=== PATIENT | female | born 1940 | race Caucasian/White ===

== ENCOUNTER 2016-05-22 21:39 | Emergency (ER) | payer MEDICARE, BC ==
[~2016-05-22] VITALS: Ht 157.5 cm; Wt 66.7 kg
[~2016-05-22 21:39] MED LIST: ASPI81TA82 PO; CALC600T34 PO; CHOL1CAP6 PO; LIPI10TA PO; PANT20 PO
[2016-05-22 21:55] VITALS: BP 131/76; PULSE 125; RESP 18; TEMP 99.8; O2SAT 96
[2016-05-22] MEDS ORDERED: SODIUM CHLOR 0.9% 1000 ML INJ 1,000 ML IV SCH ×2 (22:33→23:30)
[2016-05-22 22:34] VITALS: O2SAT 98
--- NOTE | 2016-05-22 22:44 | PD ---
HPI Chief Complaint: GI Complaint Time Seen by Provider: 22:14 Travel History International Travel<30 days: No Contact w/Intl Traveler<30days: No Traveled to known affect area: No History of Present Illness HPI The patient is a 75-year-old female that states she has been having nausea and vomiting since 2 PM today. She feels that she has had a fever, she has chills and feels cold. She does have generalized myalgias. She denies any abdominal pain. She denies any dysuria, frequency or urgency. She does feel dehydrated. PFSH Past Medical History Heart Rhythm Problems: No Cancer: No Cardiac Catheterization: No Cardiovascular Problems: Yes (HX OF CARDIAC CATH, ? CARDIOMYOPATHY, LBBB ON EKG ) High Cholesterol: No Congestive Heart Failure: No Diabetes: No Diminished Hearing: No Endocrine: No Gastrointestinal Disorders: Yes (ACID REFLUX, CELIAC DISEASE--GLUTEN FREE) Glaucoma: Yes (BILATERAL 1981) Genitourinary: No Hepatitis: No Hiatal Hernia: No Hypertension: No Immune Disorder: Yes (CELIAC DISEASE) Musculoskeletal: Yes (ARTHRITIS, ELISEO HAND TRIGGER FINGER, CARPAL TUNNEL ELISEO HANDS, ELISEO SHOULDERS) Neurologic: No Psychiatric: No Reproductive: No Respiratory: No Myocardial Infarction: Yes Thyroid Disease: No Tetanus Vaccination: Unknown Influenza Vaccination: No ?: Not Menopausal: Yes : 2 Past Surgical History Body Medical Devices: SCREWS IN R KNEE REMOVED Cholecystectomy: Yes (2002) Coronary Artery Bypass Graft: No Eye Surgery: Yes (ACUTE GLAUCOMA SURGERY ELISEO EYES 1981, ELISEO CATARACT SURGERY) Joint Replacement: No Neurologic Surgery: Yes (BILATERAL CARPAL TUNNEL, NEUROMA REMOVED FROM PLANTAR SURFACE ELISEO FEET) Thoracic Surgery: Yes (CHEST TUBE FOR R LUNG PNEUMOTHROAX ACQUIRED DURING CPR WHEN PT CODED 2008) Other Surgery: Yes (MECHANICAL VENTILATION, TRAUMATIC R. PNEUMOTHORAX) Family History Family Myocardial Infarction: Yes (mom) Social History Alcohol Use: No Tobacco Use: No Substance Use: No Allergies-Medications (Allergen,Severity, Reaction): Coded Allergies: No Known Allergies (Unverified , 11/05/15) Reported Meds & Prescriptions Reported Meds & Active Scripts Active Ibuprofen 600 Mg Tab 600 Mg PO TID Reported Protonix (Pantoprazole Sodium) 20 Mg Tab 20 Mg PO DAILY Vitamin D-3 (Cholecalciferol) 1,000 Unit Tab 1,000 Units PO DAILY Lipitor (Atorvastatin Calcium) 10 Mg Tab 10 Mg PO HS Review of Systems Except as stated in HPI: all other systems reviewed are Neg Physical Exam Narrative GENERAL: The patient is alert, oriented 3, moderately dehydrated appearing in moderate apparent distress with her nausea. Her vital signs show heart rate of 125 with temperature 99.8. SKIN: Warm and dry. No skin rash is seen. HEAD: Atraumatic. Normocephalic. EYES: Pupils equal and round. No scleral icterus. No injection or drainage. ENT: No nasal bleeding or discharge. Mucous membranes pink and moist. The throat is clear and the tympanic membranes are clear. NECK: Trachea midline. No JVD. CARDIOVASCULAR: Regular rate and rhythm. No murmur appreciated. RESPIRATORY: No accessory muscle use. Clear to auscultation. Breath sounds equal bilaterally. GASTROINTESTINAL: Abdomen soft, non-tender, nondistended. Hepatic and splenic margins not palpable. No Guarding or rebound is present. MUSCULOSKELETAL: No obvious deformities. No clubbing. No cyanosis. No edema. NEUROLOGICAL: Awake and alert. No obvious cranial nerve deficits. Motor grossly within normal limits. Normal speech. PSYCHIATRIC: Appropriate mood and affect; insight and judgment normal. Data Data Last Documented VS Vital Signs Date Time Temp Pulse Resp B/P Pulse Ox O2 Delivery O2 Flow Rate FiO2 05/22/16 23:49 86 17 138/58 99 Room Air 05/22/16 21:55 99.8 Orders Complete Blood Count With Diff (05/22/16 22:33) Comprehensive Metabolic Panel (05/22/16 22:33) Lipase (05/22/16 22:33) Urinalysis - C+S If Indicated (05/22/16 22:33) Iv Access Insert/Monitor (05/22/16 22:33) Ecg Monitoring (05/22/16 22:33) Oximetry (05/22/16 22:33) Ondansetron Inj (Zofran Inj) (05/22/16 22:45) Sodium Chlor 0.9% 1000 Ml Inj (Ns 1000 M (05/22/16 22:33) Sodium Chloride 0.9% Flush (Ns Flush) (05/22/16 22:45) Ketorolac Inj (Toradol Inj) (05/22/16 22:45) Influenzae A/B Antigen (05/22/16 22:53) Sodium Chloride 0.9% Flush (Ns Flush) (05/22/16 23:00) Sodium Chlor 0.9% 1000 Ml Inj (Ns 1000 M (05/22/16 23:30) Labs Laboratory Tests Test 05/22/16 22:40 White Blood Count 6.8 TH/MM3 Red Blood Count 5.10 MIL/MM3 Hemoglobin 15.3 GM/DL Hematocrit 46.5 % Mean Corpuscular Volume 91.3 FL Mean Corpuscular Hemoglobin 30.1 PG Mean Corpuscular Hemoglobin 33.0 % Concent Red Cell Distribution Width 13.9 % Platelet Count 206 TH/MM3 Mean Platelet Volume 8.8 FL Neutrophils (%) (Auto) 83.6 % Lymphocytes (%) (Auto) 10.3 % Monocytes (%) (Auto) 5.5 % Eosinophils (%) (Auto) 0.3 % Basophils (%) (Auto) 0.3 % Neutrophils # (Auto) 5.7 TH/MM3 Lymphocytes # (Auto) 0.7 TH/MM3 Monocytes # (Auto) 0.4 TH/MM3 Eosinophils # (Auto) 0.0 TH/MM3 Basophils # (Auto) 0.0 TH/MM3 CBC Comment DIFF FINAL Differential Comment Sodium Level 143 MEQ/L Potassium Level 3.8 MEQ/L Chloride Level 103 MEQ/L Carbon Dioxide Level 28.6 MEQ/L Anion Gap 11 MEQ/L Blood Urea Nitrogen 15 MG/DL Creatinine 0.90 MG/DL Estimat Glomerular Filtration 61 ML/MIN Rate Random Glucose 131 MG/DL Calcium Level 8.9 MG/DL Total Bilirubin 1.1 MG/DL Aspartate Amino Transf 26 U/L (AST/SGOT) Alanine Aminotransferase 30 U/L (ALT/SGPT) Alkaline Phosphatase 53 U/L Total Protein 7.2 GM/DL Albumin 3.9 GM/DL Lipase 155 U/L MDM Medical Decision Making Medical Screen Exam Complete: Yes Emergency Medical Condition: Yes Medical Record Reviewed: Yes Interpretation(s) The CBC is normal. The hemoglobin is 15.3 and hematocrit 46.5 and this likely represents some hemoconcentration from dehydration. The complete metabolic profile shows a GFR of 61, glucose 131 and total bilirubin 1.1 but is otherwise normal. The lipase is normal. Differential Diagnosis Viral syndrome, gastroenteritis, gastritis, dehydration, electrolyte disorder, anemia, hypo-/hyperglycemia, colitis Narrative Course The patient has drank 2 glasses of water/Gatorade and is at 2 L of IV fluid. Despite this, she is not able to make a urine yet. She apparently was dehydrated. The hemoglobin and hematocrit likely reflect some hemoconcentration from dehydration. Impression: Viral syndrome, moderate dehydration Sepsis Criteria SIRS Criteria (2 or more): Heart rate over 90 Diagnosis Primary Impression: Viral syndrome Additional Impression: Moderate dehydration Additional Instructions: Take the Motrin one tablet 3 times daily for the aches and pains. Follow-up with your primary care physician this week. Med/Other Pt SpecificInfo: Prescription(s) given Scripts Ibuprofen 600 Mg Gay263 Mg PO TID #45 TAB Ref 0 Prov:Tyrell Bales MD 05/23/16 Disposition: 01 DISCHARGE HOME Condition: Stable Tyrell Bales MD May 22, 2016 22:44
[2016-05-22] MEDS ORDERED: ONDANSETRON HCL 4 MG/2 ML VIAL IVP ONE (22:45)
[2016-05-22] MEDS ORDERED: SODIUM CHLORIDE 0.9% FLUSH 5 ML FLUSH IVF PRN ×2 (22:45→23:00)
[2016-05-22] MEDS ORDERED: KETOROLAC TROMETHAMINE 60 MG/2 ML (IM) VIAL IVP ONE (22:45)
[2016-05-22 22:49] VITALS: BP 112/56; PULSE 101; RESP 16; O2SAT 97
[2016-05-22 23:05] LABS: AUTOMATED NEUTROPHIL # 5.7 TH/MM3 (1.8-7.7); BASOPHIL % 0.3 % (0.0-2.0); EOSINOPHIL % 0.3 % (0.0-4.0); HEMATOCRIT 46.5 % (35.0-46.0); HEMO FLAGS DIFF FINAL; LYMPH % 10.3 % (9.0-44.0); LYMPHOCYTE # 0.7 TH/MM3 (1.0-4.8); MEAN CELL VOLUME 91.3 FL (80.0-100.0); MEAN CORPUSCULAR HEMOGLOBIN 30.1 PG (27.0-34.0); MONO % 5.5 % (0.0-8.0); NEUT % 83.6 % (16.0-70.0); PLATELET COUNT 206 TH/MM3 (150-450); RED CELL DISTRIBUTION WIDTH 13.9 % (11.6-17.2); WHITE BLOOD COUNT 6.8 TH/MM3 (4.0-11.0)
[2016-05-22] MEDS ORDERED: VITA10003 PO (23:06)
[2016-05-22] MEDS ORDERED: PANT20 PO (23:06)
[2016-05-22] MEDS ORDERED: LIPI10TA PO (23:06)
[2016-05-22 23:08] LABS: CHLORIDE 103 MEQ/L (98-107); POTASSIUM 3.8 MEQ/L (3.5-5.1); SODIUM (NA) 143 MEQ/L (136-145)
[2016-05-22 23:12] LABS: ANION GAP 11 MEQ/L (5-15); BICARBONATE 28.6 MEQ/L (21.0-32.0); BLOOD UREA NITROGEN 15 MG/DL (7-18)
[2016-05-22 23:15] LABS: ALT (GPT) 30 U/L (10-53); AST (GOT) 26 U/L (15-37); GLOMERULAR FILTRATION RATE 61 ML/MIN (>89)
[2016-05-22 23:17] LABS: TOTAL BILIRUBIN ADULT 1.1 MG/DL (0.2-1.0)
[2016-05-22 23:18] LABS: ALKALINE PHOSPHATASE 53 U/L (45-117)
[2016-05-22 23:30] VITALS: TEMP 99.5
[2016-05-22 23:49] VITALS: BP 138/58; PULSE 86; RESP 17; O2SAT 99
[2016-05-23] MEDS ORDERED: IBUP-232 PO (00:02)
[2016-05-23] MEDS ORDERED: ZOFR8TAB PO (00:15)
[2016-05-23 00:22] LABS: BLOOD, URINE NEG (NEG); GLUCOSE,URINE NEG (NEG); KETONE, URINE 15 mg/dL (NEG); NITRITE,URINE NEG (NEG)
[2016-05-23] MEDS ORDERED: ONDANSETRON HCL 4 MG/2 ML VIAL IV ONE (00:30)
[2016-05-23 00:32] LABS: METHOD OF COLLECTION CLEAN CATCH; URINE COLOR YELLOW (YELLW/STRAW)
[2016-05-23 00:34] LABS: MUCUS URINE OCC /lpf (OCC); SQUAMOUS EPITHELIAL CELL URINE 0-5 /hpf (0-5)
[2016-05-23 00:35] LABS: COMMENT (UR) CULT NOT INDICATED; CULTURE IF INDICATED CULT NOT INDICATED
[2016-05-23 00:50] VITALS: BP 116/69
== END 2016-05-23 00:51 | disposition home or self-care (01) ==
LOC: PHED 21:39
DX: B34.9 Viral infection, unspecified (principal); E86.0 Dehydration
CPT/HCPCS: 80053; 81001; 83690; 85025; 87804; 96361; 96374; 96375; 96376; 99284; J1885; J2405; J7030

== ENCOUNTER → 2016-09-06 | Outpatient (CLI) | payer MEDICARE, BC ==
[~2016-09-06] MED LIST changes: -ASPI81TA82 PO; -CALC600T34 PO; -CHOL1CAP6 PO; +IBUP-232 PO; +VITA10003 PO; +ZOFR8TAB PO
== END ==
LOC: PLAB 12:45
PROVIDERS: ATTEND Family Medicine
DX: R25.2 Cramp and spasm (principal)
CPT/HCPCS: 36415; 82310

== ENCOUNTER → 2016-11-03 | Outpatient (CLI) | payer MEDICARE, BC ==
[2016-11-03 13:25] LABS: AUTOMATED NEUTROPHIL # 2.2 TH/MM3 (1.8-7.7); BASOPHIL % 0.5 % (0.0-2.0); EOSINOPHIL # 0.1 TH/MM3 (0-0.4); EOSINOPHIL % 2.4 % (0.0-4.0); HEMATOCRIT 41.3 % (35.0-46.0); HEMO FLAGS DIFF FINAL; LYMPH % 30.8 % (9.0-44.0); LYMPHOCYTE # 1.2 TH/MM3 (1.0-4.8); MEAN CELL VOLUME 92.1 FL (80.0-100.0); MEAN CORPUSCULAR HEMOGLOBIN 30.7 PG (27.0-34.0); MEAN CORPUSCULAR HGB CONC 33.3 % (32.0-36.0); MONO % 11.1 % (0.0-8.0); NEUT % 55.2 % (16.0-70.0); PLATELET COUNT 218 TH/MM3 (150-450); RED BLOOD COUNT 4.49 MIL/MM3 (4.00-5.30)
[2016-11-03 13:27] LABS: ANION GAP 7 MEQ/L (5-15); AST (GOT) 26 U/L (15-37); BICARBONATE 31.2 MEQ/L (21.0-32.0); BLOOD UREA NITROGEN 16 MG/DL (7-18); CHLORIDE 105 MEQ/L (98-107); GLOMERULAR FILTRATION RATE 80 ML/MIN (>89); GLUCOSE,FASTING 82 MG/DL (74-99); POTASSIUM 4.2 MEQ/L (3.5-5.1); SODIUM (NA) 143 MEQ/L (136-145)
[2016-11-03 13:39] LABS: ALKALINE PHOSPHATASE 60 U/L (45-117); ALT (GPT) 29 U/L (10-53); HDL CHOLESTEROL 61.3 MG/DL (40.0-60.0); LDL CHOLESTEROL 101 MG/DL (0-99); TOTAL BILIRUBIN ADULT 0.8 MG/DL (0.2-1.0)
== END ==
LOC: PLAB 11:03
PROVIDERS: ATTEND Family Medicine
DX: R25.2 Cramp and spasm (principal); E78.5 Hyperlipidemia, unspecified; M81.0 Age-related osteoporosis without current pathological fracture; E55.9 Vitamin D deficiency, unspecified; F41.9 Anxiety disorder, unspecified; R53.83 Other fatigue
CPT/HCPCS: 36415; 80053; 80061; 82306; 84443; 85025

== ENCOUNTER → 2017-03-29 | Outpatient (CLI) | payer MEDICARE, BC ==
[~2017-03-29] MED LIST changes: -IBUP-232 PO; +NAPR500 PO; -VITA10003 PO; -ZOFR8TAB PO
[2017-03-29 13:52] LABS: BICARBONATE 29.7 MEQ/L (21.0-32.0)
== END ==
LOC: PLAB 11:02
PROVIDERS: ATTEND Family Medicine
DX: R25.2 Cramp and spasm (principal)
CPT/HCPCS: 36415; 80048

== ENCOUNTER → 2017-05-16 | Outpatient (CLI) | payer MEDICARE, BC ==
[~2017-05-16] MED LIST changes: +ALPR0.5T3 PO; +BETH25TA2 PO; +CALC1TAB87 PO; +DENO60P SQ; +ECASA81 PO; +MAGN250T11 PO; +SUCR1TAB PO; +TIZA4 PO
[2017-05-16 09:45] LABS: AUTOMATED NEUTROPHIL # 1.4 TH/MM3 (1.8-7.7); BASOPHIL % 0.6 % (0.0-2.0); EOSINOPHIL # 0.1 TH/MM3 (0-0.4); EOSINOPHIL % 4.1 % (0.0-4.0); HEMOGLOBIN 13.6 GM/DL (11.6-15.3); LYMPH % 40.5 % (9.0-44.0); LYMPHOCYTE # 1.3 TH/MM3 (1.0-4.8); MEAN CELL VOLUME 94.2 FL (80.0-100.0); MEAN CORPUSCULAR HEMOGLOBIN 31.9 PG (27.0-34.0); MEAN CORPUSCULAR HGB CONC 33.9 % (32.0-36.0); MEAN PLATELET VOLUME 8.1 FL (7.0-11.0); MONO % 11.2 % (0.0-8.0); MONOCYTE # 0.4 TH/MM3 (0-0.9); NEUT % 43.6 % (16.0-70.0); PLATELET COUNT 230 TH/MM3 (150-450); RED BLOOD COUNT 4.25 MIL/MM3 (4.00-5.30); RED CELL DISTRIBUTION WIDTH 14.4 % (11.6-17.2); WHITE BLOOD COUNT 3.1 TH/MM3 (4.0-11.0)
[2017-05-16 10:02] LABS: ALBUMIN 3.7 GM/DL (3.4-5.0); ALT (GPT) 22 U/L (10-53); AST (GOT) 18 U/L (15-37); BICARBONATE 29.5 MEQ/L (21.0-32.0); BLOOD UREA NITROGEN 16 MG/DL (7-18); CALCIUM 8.8 MG/DL (8.5-10.1); CHLORIDE 106 MEQ/L (98-107); CREATININE 0.69 MG/DL (0.50-1.00); GLOMERULAR FILTRATION RATE 83 ML/MIN (>89); GLUCOSE,FASTING 80 MG/DL (74-99); SODIUM (NA) 142 MEQ/L (136-145)
[2017-05-16 10:03] LABS: CHOLESTEROL 185 MG/DL (120-200); TRIGLYCERIDES 180 MG/DL (42-150)
[2017-05-16 10:12] LABS: ALKALINE PHOSPHATASE 55 U/L (45-117); CHOLESTEROL/ HDL RATIO 2.66 RATIO; HDL CHOLESTEROL 69.4 MG/DL (40.0-60.0); LDL CHOLESTEROL 80 MG/DL (0-99); TOTAL BILIRUBIN ADULT 0.6 MG/DL (0.2-1.0); TOTAL PROTEIN 6.6 GM/DL (6.4-8.2)
== END ==
LOC: PLAB 08:15
PROVIDERS: ATTEND Family Medicine
DX: E78.5 Hyperlipidemia, unspecified (principal); M81.0 Age-related osteoporosis without current pathological fracture; F41.9 Anxiety disorder, unspecified; R53.83 Other fatigue; E55.9 Vitamin D deficiency, unspecified
CPT/HCPCS: 36415; 80053; 80061; 82306; 84443; 85025

== ENCOUNTER → 2017-08-15 | Outpatient (CLI) | payer MEDICARE, BC ==
[2017-08-15 14:33] LABS: ALBUMIN 3.9 GM/DL (3.4-5.0); AST (GOT) 23 U/L (15-37); BICARBONATE 29.6 MEQ/L (21.0-32.0); BLOOD UREA NITROGEN 22 MG/DL (7-18); CALCIUM 9.3 MG/DL (8.5-10.1); CHLORIDE 104 MEQ/L (98-107); CREATININE 0.83 MG/DL (0.50-1.00); GLOMERULAR FILTRATION RATE 67 ML/MIN (>89); GLUCOSE,RANDOM 82 MG/DL (74-106); SODIUM (NA) 140 MEQ/L (136-145)
[2017-08-15 14:39] LABS: ALKALINE PHOSPHATASE 64 U/L (45-117); ALT (GPT) 29 U/L (10-53); C-REACTIVE PROTEIN LESS THAN 0.29 MG/DL (0.00-0.30); TOTAL BILIRUBIN ADULT 0.9 MG/DL (0.2-1.0); TOTAL PROTEIN 7.2 GM/DL (6.4-8.2)
[2017-08-18 10:56] LABS: ANA PATTERN DIFFUSE
== END ==
LOC: PLAB 11:17
PROVIDERS: ATTEND Family Medicine
DX: R53.83 Other fatigue (principal); M35.00 Sjogren syndrome, unspecified; Z87.19 Personal history of other diseases of the digestive system
CPT/HCPCS: 36415; 80053; 85652; 86038; 86039; 86140

== ENCOUNTER → 2017-08-21 | Outpatient (CLI) | payer MEDICARE, BC ==
[2017-08-24 03:50] LABS: ACTIN AB IGG <20 U; C3 SERUM 118 mg/dL (83-193); C4 SERUM 34 mg/dL (15-57)
[2017-08-24 09:52] LABS: RHEUMATOID FACTOR 12 IU/mL (<14)
[2017-08-24 17:54] LABS: DNA ABS DS CRITHIDIA IFA <1 IU/mL; MITOCHONDRIAL AB NEGATIVE (NEGATIVE); MITOCHONDRIAL AB TITER ND (<1:20); RIBOSOMAL P AB <1.0 NEG AI (<1.0 NEGATIVE); SCL-70 AB <1.0 NEG AI (<1.0 NEGATIVE); SM AB <1.0 NEG AI (<1.0 NEGATIVE); SM/RNP AB <1.0 NEG AI (<1.0 NEGATIVE)
== END ==
LOC: PLAB 12:50
PROVIDERS: ATTEND Family Medicine
DX: R68.2 Dry mouth, unspecified (principal); R76.0 Raised antibody titer
CPT/HCPCS: 36415; 83516; 86160; 86225; 86235; 86255; 86431

== ENCOUNTER → 2017-11-07 | Outpatient (CLI) | payer MEDICARE, BC | LOC: PLAB 11:36 | PROVIDERS: ATTEND Family Medicine | DX: R25.2 Cramp and spasm (principal) | CPT/HCPCS: 36415; 82310 ==